=== PATIENT | female | born 1945 | race Caucasian/White ===

== ENCOUNTER → 2017-06-06 | Outpatient (CLI) | payer OTHER | LOC: CAT 16:24 | DX: K57.32 Diverticulitis of large intestine without perforation or abscess without bleeding (principal); K76.0 Fatty (change of) liver, not elsewhere classified ==

== ENCOUNTER → 2017-06-14 | Outpatient (CLI) | payer OTHER | LOC: ULTRA 15:58 | DX: M79.604 Pain in right leg (principal); M79.89 Other specified soft tissue disorders ==

== ENCOUNTER → 2017-06-15 | Outpatient (CLI) | payer OTHER | LOC: ULTRA 07:23 | DX: K76.0 Fatty (change of) liver, not elsewhere classified (principal); M79.604 Pain in right leg; R60.0 Localized edema ==